=== PATIENT | male | born 1960 | race Caucasian/White ===

== ENCOUNTER 2021-03-03 06:54 | Emergency (ER) | payer BC, OTHER ==
[2021-03-03 07:04] VITALS: BP 117/50; PULSE 80; TEMP 97.7; BMI 26.5
== END 2021-03-03 08:22 | disposition home or self-care (01) ==
LOC: FER 06:54
DX: M79.674 Pain in right toe(s) (principal)
CPT/HCPCS: 73630-TC-RT-FY; 99283-25

== ENCOUNTER 2021-10-18 08:33 | Day surgery (SDC) | payer BC, OTHER ==
[2021-10-08 15:32] VITALS: BMI 26.2
[2021-10-18] MEDS ORDERED: MIDAZOLAM HCL 2 MG/2 ML SINGLE DOSE VIAL ONE (09:04)
[2021-10-18] MEDS ORDERED: LIDOCAINE HCL/PF 2% SDV 5ML VIAL ONE (09:04)
[2021-10-18] MEDS ORDERED: DEXAMETHASONE SOD PHOSPHATE 4 MG/1 ML VIAL ONE (09:04)
[2021-10-18] MEDS ORDERED: KETOROLAC TROMETHAMINE 30 MG/1 ML VIAL ONE (09:04)
[2021-10-18] MEDS ORDERED: PROPOFOL 20 ML ONE (09:04)
[2021-10-18] MEDS ORDERED: ONDANSETRON 4 MG/2 ML VIAL ONE (09:04)
[2021-10-18] MEDS ORDERED: BUPIVACAINE HCL/PF 2.5 MG/ML - 30 ML VIAL IJ ONE (09:17)
[2021-10-18] MEDS ORDERED: ceFAZolin SODIUM 1 GM VIAL ONE (09:39)
[2021-10-18] MEDS ORDERED: BUPIVACAINE HCL/PF 0.25% (2.5MG/ML) 10 ML VIAL IJ ONE (10:19)
[2021-10-18] MEDS ORDERED: LACTATED RINGERS SOLUTION 1,000 ML IV SCH (10:30)
[2021-10-18] MEDS ORDERED: oxyCODONE HCL 5 MG TABLET PO PRN ×2 (10:30)
[2021-10-18] MEDS ORDERED: ONDANSETRON 4 MG/2 ML VIAL IVPUSH PRN (10:30)
[2021-10-18] MEDS ORDERED: FENTANYL CITRATE/PF 50 MCG/ML VIAL ONE (11:02)
[2021-10-18] MEDS ORDERED: oxyCODONE HCL 5 MG TABLET ONE (11:31)
[2021-10-18 11:49] VITALS: RESP 16; TEMP 97.5
[2021-10-18 12:52] VITALS: BP 117/75; PULSE 62
== END 2021-10-18 12:45 | disposition home or self-care (01) ==
LOC: FASU 08:33
PROVIDERS: ATTEND Orthopaedic Surgery
PROC: 0SBC4ZZ Excision of Right Knee Joint, Percutaneous Endoscopic Approach (ICD-10-PCS; 2021-10-18)
PROC: 0SBC4ZZ Excision of Right Knee Joint, Percutaneous Endoscopic Approach (ICD-10-PCS; principal; 2021-10-18 09:59)
DX: S83.241A Other tear of medial meniscus, current injury, right knee, initial encounter (principal); S83.281A Other tear of lateral meniscus, current injury, right knee, initial encounter; S83.8X1A Sprain of other specified parts of right knee, initial encounter; M65.861 Other synovitis and tenosynovitis, right lower leg; X58.XXXA Exposure to other specified factors, initial encounter; Y93.9 Activity, unspecified; Y92.9 Unspecified place or not applicable
CPT/HCPCS: 94760